=== PATIENT | male | born 1985 | race Caucasian/White ===

== ENCOUNTER 2020-03-31 17:40 | Emergency (ER) | payer SELFPAY ==
[~2020-03-31] VITALS: Ht 188 cm; Wt 75.0 kg
[2020-03-31 18:09] VITALS: BP 113/76
== END 2020-03-31 18:20 ==
LOC: ER 17:41
DX: R56.9 Unspecified convulsions (principal); Z02.89 Encounter for other administrative examinations
CPT/HCPCS: 99283